=== PATIENT | male | born 1955 | race Caucasian/White ===

== ENCOUNTER 2017-09-03 14:58 | Inpatient (IN) | payer MEDICARE, OTHER ==
[2017-09-03] MEDS: SOD CHLORIDE 0.9% 1,000 ML IV (17:30)
[2017-09-03 17:31] LABS: ADD MAN DIFF? NO
[2017-09-03 17:54] LABS: ALANINE AMINOTRANSFERASE 30 IU/L (13-69); ALBUMIN/GLOBULIN RATIO 1.21; ALKALINE PHOSPHATASE 154 IU/L (42-121); ANION GAP 16 (8-16); ASPARTATE AMINO TRANSFERASE 33 IU/L (15-46); BILIRUBIN,INDIRECT 1.4 mg/dl (0-1.1); BILIRUBIN,TOTAL 1.4 mg/dl (0.2-1.3); BLOOD UREA NITROGEN 18 mg/dl (7-20); CALCIUM 9.2 mg/dl (8.4-10.2); CARBON DIOXIDE 25 mmol/L (21-31); CHLORIDE 100 mmol/L (97-110); GLUCOSE 88 mg/dl (70-220); LIPASE 18 U/L (23-300); SODIUM 137 mmol/L (135-144); TOTAL PROTEIN 7.3 g/dl (6.1-8.1)
[2017-09-03 17:56] LABS: BASOPHILS % 0.2 % (0.0-2.0); EOSINOPHILS % 0.2 % (0.0-7.0); HEMATOCRIT 36.3 % (42.0-52.0); HEMOGLOBIN 11.9 g/dl (14.0-18.0); LYMPHOCYTES # 0.8 10^3/ul (0.8-2.9); LYMPHOCYTES % 15.1 % (15.0-51.0); MEAN CORPUSCULAR HEMOGLOBIN 32.5 pg (29.0-33.0); MEAN CORPUSCULAR HGB CONC 32.8 g/dl (32.0-37.0); MEAN CORPUSCULAR VOLUME 99.2 fl (82.0-101.0); MONOCYTE # 0.5 10^3/ul (0.3-0.9); MONOCYTES % 9.2 % (0.0-11.0); NEUTROPHIL # 3.7 10^3/ul (1.6-7.5); NEUTROPHILS % 75.1 % (39.0-77.0); PLATELET COUNT 234 10^3/UL (140-415); RED BLOOD COUNT 3.66 10^6/ul (4.70-6.10); RED CELL DISTRIBUTION WIDTH 13.6 % (11.5-14.5)
[2017-09-03 19:55] LABS: ADD UMIC NO; UR ASCORBIC ACID NEGATIVE (NEGATIVE); UR BILIRUBIN (Dip) NEGATIVE (NEGATIVE); UR BLOOD (Dip) NEGATIVE (NEGATIVE); UR CLARITY CLEAR (CLEAR); UR COLOR YELLOW (YELLOW); UR GLUCOSE (Dip) NEGATIVE (NEGATIVE); UR KETONES (Dip) 1+ mg/dL (NEGATIVE); UR LEUKOCYTE ESTERASE (Dip) NEGATIVE Leu/ul (NEGATIVE); UR NITRITE (Dip) NEGATIVE (NEGATIVE); UR SPECIFIC GRAVITY (Dip) 1.014 (1.003-1.030); UR TOTAL PROTEIN (Dip) NEGATIVE (NEGATIVE); UR UROBILINOGEN (Dip) 1+ mg/dL (NEGATIVE)
[2017-09-03] MEDS ORDERED: ONDANSETRON 4 MG INJ IV (20:30)
[2017-09-03] MEDS ORDERED: ACETAMINOPHEN 325 MG TAB PO (20:30)
[2017-09-03] MEDS ORDERED: ACETAMINOPHEN 650 MG SUPP PR (21:30)
[2017-09-03] MEDS ORDERED: NACL 0.9% 3 ML SYG IV (21:30)
[2017-09-03] MEDS: DEXTROSE 5%-0.45% NACL 1,000 ML IV (21:46)
[2017-09-03] MEDS ORDERED: KETOROLAC 15 MG INJ IV (22:00)
[2017-09-03 22:38] LABS: HAAIG REFLEX REFLEX FILED
[2017-09-03] MEDS: ZOLPIDEM 5 MG TAB PO (23:07)
[2017-09-03 23:35] LABS: HEPATITIS B SURFACE ANTIGEN NEGATIVE (NEGATIVE)
[2017-09-03 23:37] LABS: CANCER ANTIGEN 19-9 40.8 U/ml (0.0-37.0)
[2017-09-03 23:52] LABS: HEPATITIS B CORE ANTIBODY NEGATIVE (NEGATIVE); HEPATITIS C VIRAL ANTIBODY NEGATIVE (NEGATIVE)
[2017-09-03 23:53] LABS: HEPATITIS B SURFACE ANTIBODY NEGATIVE (NEGATIVE)
[2017-09-04] MEDS ORDERED: LORAZEPAM 2 MG INJ IV (01:30)
[2017-09-04] MEDS: LORAZEPAM 2 MG INJ IV (01:31)
[2017-09-04] MEDS: morphine 2 MG INJ IV (02:48)
[2017-09-04 03:03] LABS: CANCER ANTIGEN 125 31.8 U/ml (0.0-35.0)
[2017-09-04 03:03] LABS: CARCINOEMBRYONIC ANTIGEN 2.9 ng/ml (0.0-5.0)
[2017-09-04 05:33] LABS: ADD MAN DIFF? NO
[2017-09-04 05:39] LABS: ABNORMAL IP MESSAGE 1; BASOPHILS % 0.2 % (0.0-2.0); EOSINOPHILS % 0.2 % (0.0-7.0); HEMATOCRIT 33.4 % (42.0-52.0); HEMOGLOBIN 11.2 g/dl (14.0-18.0); LYMPHOCYTES # 0.5 10^3/ul (0.8-2.9); MEAN CORPUSCULAR HEMOGLOBIN 32.3 pg (29.0-33.0); MEAN CORPUSCULAR HGB CONC 33.5 g/dl (32.0-37.0); MEAN CORPUSCULAR VOLUME 96.3 fl (82.0-101.0); MEAN PLATELET VOLUME 10.5 fl (7.4-10.4); MONOCYTE # 0.4 10^3/ul (0.3-0.9); MONOCYTES % 8.7 % (0.0-11.0); NEUTROPHIL # 3.7 10^3/ul (1.6-7.5); NEUTROPHILS % 80.7 % (39.0-77.0); PLATELET COUNT 229 10^3/UL (140-415); POSITIVE DIFF @See below; RED BLOOD COUNT 3.47 10^6/ul (4.70-6.10); RED CELL DISTRIBUTION WIDTH 13.3 % (11.5-14.5)
[2017-09-04 05:39] LABS: WHITE BLOOD COUNT 4.6 10^3/ul (4.8-10.8)
[2017-09-04] MEDS: PANTOPRAZOLE 40 MG INJ IV (05:56)
[2017-09-04] MEDS ORDERED: PANTOPRAZOLE 40 MG INJ IV (06:00)
[2017-09-04 07:13] LABS: ALANINE AMINOTRANSFERASE 26 IU/L (13-69); ALBUMIN 3.3 g/dl (3.3-4.9); ALBUMIN/GLOBULIN RATIO 1.17; ALKALINE PHOSPHATASE 104 IU/L (42-121); ANION GAP 10 (8-16); ASPARTATE AMINO TRANSFERASE 29 IU/L (15-46); BLOOD UREA NITROGEN 13 mg/dl (7-20); CALCIUM 8.9 mg/dl (8.4-10.2); CARBON DIOXIDE 27 mmol/L (21-31); CHLORIDE 105 mmol/L (97-110); CREATININE 0.64 mg/dl (0.61-1.24); GLUCOSE 116 mg/dl (70-220); MAGNESIUM 1.9 mg/dl (1.7-2.5); POTASSIUM 3.7 mmol/L (3.5-5.1); SODIUM 138 mmol/L (135-144); TOTAL PROTEIN 6.1 g/dl (6.1-8.1)
[2017-09-04] MEDS: DEXTROSE 5%-0.45% NACL 1,000 ML IV ×3 (07:58→20:32)
[2017-09-04 08:23] LABS: HEMOGLOBIN A1C 5.6 % (0-5.9)
[2017-09-04] MEDS: ENOXAPARIN 30 MG/0.3 ML SYG SC (09:16)
[2017-09-04 11:06] LABS: THYROID STIMULATING HORMONE 0.771 MIU/L (0.465-4.680)
[2017-09-04] MEDS: ZOLPIDEM 5 MG TAB PO (21:36)
[2017-09-05 05:22] LABS: ADD MAN DIFF? NO
[2017-09-05 05:24] LABS: ABNORMAL IP MESSAGE 1; BASOPHILS % 0.1 % (0.0-2.0); EOSINOPHILS % 0.1 % (0.0-7.0); HEMATOCRIT 34.2 % (42.0-52.0); HEMOGLOBIN 11.9 g/dl (14.0-18.0); LYMPHOCYTES # 0.6 10^3/ul (0.8-2.9); LYMPHOCYTES % 8.4 % (15.0-51.0); MEAN CORPUSCULAR HEMOGLOBIN 32.5 pg (29.0-33.0); MEAN CORPUSCULAR HGB CONC 34.8 g/dl (32.0-37.0); MEAN CORPUSCULAR VOLUME 93.4 fl (82.0-101.0); MEAN PLATELET VOLUME 10.5 fl (7.4-10.4); MONOCYTE # 0.5 10^3/ul (0.3-0.9); MONOCYTES % 6.8 % (0.0-11.0); NEUTROPHIL # 5.8 10^3/ul (1.6-7.5); NEUTROPHILS % 84.2 % (39.0-77.0); PLATELET COUNT 238 10^3/UL (140-415); POSITIVE DIFF @See below; RED BLOOD COUNT 3.66 10^6/ul (4.70-6.10); RED CELL DISTRIBUTION WIDTH 13.2 % (11.5-14.5)
[2017-09-05 05:24] LABS: WHITE BLOOD COUNT 6.9 10^3/ul (4.8-10.8)
[2017-09-05] MEDS: PANTOPRAZOLE 40 MG INJ IV (05:31)
[2017-09-05 05:39] LABS: PHOSPHORUS 2.7 mg/dl (2.5-4.9)
[2017-09-05] MEDS: DEXTROSE 5%-0.45% NACL 1,000 ML IV ×2 (06:04→19:02)
[2017-09-05] MEDS: ENOXAPARIN 30 MG/0.3 ML SYG SC (09:00)
[2017-09-05] MEDS: morphine 2 MG INJ IV ×3 (12:59→20:46)
[2017-09-05] MEDS ORDERED: MEPERIDINE 25 MG INJ (13:04)
[2017-09-05] MEDS: ONDANSETRON 4 MG INJ IV (13:05)
[2017-09-05] MEDS ORDERED: MEPERIDINE 25 MG INJ IV (13:30)
[2017-09-06] MEDS: morphine 2 MG INJ IV ×2 (00:54→05:00)
[2017-09-06] MEDS: DEXTROSE 5%-0.45% NACL 1,000 ML IV ×3 (00:55→17:35)
[2017-09-06] MEDS: PANTOPRAZOLE 40 MG INJ IV ×2 (05:00→17:34)
[2017-09-06] MEDS: ENOXAPARIN 30 MG/0.3 ML SYG SC (09:48)
[2017-09-06] MEDS: SOD CHLORIDE 0.9% 500 ML IV (12:37)
[2017-09-06 15:07] LABS: ADD MAN DIFF? NO
[2017-09-06 15:12] LABS: WHITE BLOOD COUNT 7.2 10^3/ul (4.8-10.8)
[2017-09-06 15:12] LABS: ABNORMAL IP MESSAGE 1; BASOPHILS % 0.1 % (0.0-2.0); EOSINOPHILS % 0.1 % (0.0-7.0); HEMATOCRIT 33.9 % (42.0-52.0); HEMOGLOBIN 11.2 g/dl (14.0-18.0); LYMPHOCYTES # 0.5 10^3/ul (0.8-2.9); LYMPHOCYTES % 7.5 % (15.0-51.0); MEAN CORPUSCULAR HEMOGLOBIN 32.1 pg (29.0-33.0); MEAN CORPUSCULAR VOLUME 97.1 fl (82.0-101.0); MEAN PLATELET VOLUME 10.7 fl (7.4-10.4); MONOCYTE # 0.4 10^3/ul (0.3-0.9); MONOCYTES % 5.2 % (0.0-11.0); NEUTROPHIL # 6.3 10^3/ul (1.6-7.5); NEUTROPHILS % 86.7 % (39.0-77.0); PLATELET COUNT 184 10^3/UL (140-415); POSITIVE DIFF @See below; RED BLOOD COUNT 3.49 10^6/ul (4.70-6.10); RED CELL DISTRIBUTION WIDTH 13.8 % (11.5-14.5)
[2017-09-06] MEDS: ALBUMIN HUMAN 25% 100 ML IV (15:18)
[2017-09-06 15:32] LABS: ALANINE AMINOTRANSFERASE 34 IU/L (13-69); ALBUMIN 2.8 g/dl (3.3-4.9); ALBUMIN/GLOBULIN RATIO 1.03; ALKALINE PHOSPHATASE 93 IU/L (42-121); ANION GAP 10 (8-16); ASPARTATE AMINO TRANSFERASE 28 IU/L (15-46); BILIRUBIN,INDIRECT 1.1 mg/dl (0-1.1); BILIRUBIN,TOTAL 1.1 mg/dl (0.2-1.3); BLOOD UREA NITROGEN 4 mg/dl (7-20); CALCIUM 8.3 mg/dl (8.4-10.2); CARBON DIOXIDE 25 mmol/L (21-31); CHLORIDE 106 mmol/L (97-110); CREATINE KINASE 139 IU/L (23-200); CREATININE 0.56 mg/dl (0.61-1.24); GLUCOSE 104 mg/dl (70-220); MAGNESIUM 1.5 mg/dl (1.7-2.5); POTASSIUM 3.5 mmol/L (3.5-5.1); SODIUM 137 mmol/L (135-144); TOTAL PROTEIN 5.5 g/dl (6.1-8.1)
[2017-09-06 15:40] LABS: CK INDEX 0.4; CK-MB 0.54 ng/ml (0.0-2.4)
[2017-09-06 16:01] LABS: TROPONIN-I < 0.010 ng/ml (0.000-0.120)
[2017-09-06] MEDS ORDERED: ATROPINE 1 MG/10 ML SYRINGE (16:39)
[2017-09-06] MEDS ORDERED: ATROPINE 1 MG/10 ML SYRINGE IV (17:00)
[2017-09-06] MEDS: MAGNESIUM SULFATE 2 GM/50 ML 50 ML IVPB (17:34)
[2017-09-06 21:04] LABS: CREATINE KINASE 138 IU/L (23-200)
[2017-09-06 21:14] LABS: CK-MB 0.44 ng/ml (0.0-2.4); TROPONIN-I < 0.010 ng/ml (0.000-0.120)
[2017-09-06 21:15] LABS: CK INDEX 0.3
[2017-09-07 03:53] LABS: ADD MAN DIFF? NO
[2017-09-07 04:13] LABS: CREATINE KINASE 189 IU/L (23-200)
[2017-09-07 04:15] LABS: ABNORMAL IP MESSAGE 1; BASOPHILS % 0.2 % (0.0-2.0); EOSINOPHILS % 0.2 % (0.0-7.0); HEMATOCRIT 32.9 % (42.0-52.0); HEMOGLOBIN 11.4 g/dl (14.0-18.0); LYMPHOCYTES # 0.5 10^3/ul (0.8-2.9); LYMPHOCYTES % 8.5 % (15.0-51.0); MEAN CORPUSCULAR HEMOGLOBIN 33.9 pg (29.0-33.0); MEAN CORPUSCULAR HGB CONC 34.7 g/dl (32.0-37.0); MEAN CORPUSCULAR VOLUME 97.9 fl (82.0-101.0); MEAN PLATELET VOLUME 10.7 fl (7.4-10.4); MONOCYTE # 0.3 10^3/ul (0.3-0.9); MONOCYTES % 5.5 % (0.0-11.0); NEUTROPHIL # 5.1 10^3/ul (1.6-7.5); NEUTROPHILS % 85.3 % (39.0-77.0); PLATELET COUNT 201 10^3/UL (140-415); POSITIVE DIFF @See below; RED BLOOD COUNT 3.36 10^6/ul (4.70-6.10); RED CELL DISTRIBUTION WIDTH 13.6 % (11.5-14.5)
[2017-09-07 04:18] LABS: ANION GAP 9 (8-16); BLOOD UREA NITROGEN 3 mg/dl (7-20); CALCIUM 8.5 mg/dl (8.4-10.2); CARBON DIOXIDE 24 mmol/L (21-31); CHLORIDE 107 mmol/L (97-110); CREATININE 0.52 mg/dl (0.61-1.24); GLUCOSE 98 mg/dl (70-220); MAGNESIUM 2.1 mg/dl (1.7-2.5); POTASSIUM 3.5 mmol/L (3.5-5.1); SODIUM 136 mmol/L (135-144)
[2017-09-07 04:26] LABS: CK INDEX 0.4; CK-MB 0.79 ng/ml (0.0-2.4); TROPONIN-I < 0.010 ng/ml (0.000-0.120)
[2017-09-07] MEDS: PANTOPRAZOLE 40 MG INJ IV ×2 (06:41→17:17)
[2017-09-07] MEDS: DEXTROSE 5%-0.45% NACL 1,000 ML IV ×3 (06:42→22:45)
[2017-09-07] MEDS ORDERED: GLYCOPYRROLATE 0.4 MG INJ (08:10)
[2017-09-07] MEDS ORDERED: NEOSTIGMINE 3 MG/3 ML SYRINGE (08:10)
[2017-09-07] MEDS ORDERED: ROCURONIUM 50 MG INJ (08:10)
[2017-09-07] MEDS ORDERED: CEFAZOLIN 1 GM INJ (08:10)
[2017-09-07] MEDS ORDERED: PROPOFOL 20 ML (08:10)
[2017-09-07] MEDS ORDERED: MIDAZOLAM 1 MG/ML 2 ML INJ (08:12)
[2017-09-07] MEDS ORDERED: FENTAnyl 50 MCG/ML VIAL (08:12)
[2017-09-07] MEDS ORDERED: DEXAMETHASONE 4 MG/ML 1 ML INJ (08:13)
[2017-09-07] MEDS ORDERED: ONDANSETRON 4 MG INJ (08:13)
[2017-09-07] MEDS: ENOXAPARIN 30 MG/0.3 ML SYG SC (09:00)
[2017-09-07] MEDS ORDERED: SUGAMMADEX SODIUM 200 MG/2 ML VIAL IV (09:01)
[2017-09-07] MEDS ORDERED: HYDROmorphONE 1 MG/5 ML IV SYRINGE IV ×5 (09:24→10:30)
[2017-09-07] MEDS: HYDROmorphONE 1 MG/5 ML IV SYRINGE IV (09:57)
[2017-09-07] MEDS ORDERED: FENTAnyl 50 MCG/ML VIAL IV ×5 (10:00→10:30)
[2017-09-07] MEDS: PROPOFOL 20 ML ×2 (10:25)
[2017-09-07] MEDS ORDERED: EPHEDrine SULFATE 50 MG/5 ML SYG IV (10:30)
[2017-09-07] MEDS ORDERED: TRIMETHOBENZAMIDE 100 MG/ML VIAL IM (10:30)
[2017-09-07] MEDS ORDERED: MIDAZOLAM 1 MG/ML 2 ML INJ IV (10:30)
[2017-09-07] MEDS ORDERED: hydrALAzine 20 MG INJ IV (10:30)
[2017-09-07] MEDS ORDERED: ONDANSETRON 4 MG INJ IV (10:30)
[2017-09-07] MEDS ORDERED: LABETALOL HCL 20MG INJ IV (10:30)
[2017-09-07] MEDS ORDERED: MEPERIDINE 25 MG INJ IV (10:30)
[2017-09-07] MEDS ORDERED: ALBUTEROL 0.083% (NEB) 2.5 MG/3 ML AMP HHN (10:30)
[2017-09-07] MEDS ORDERED: DIPHENHYDRAMINE 50 MG INJ IV (10:30)
[2017-09-07] MEDS ORDERED: OXYCODONE/ACETAMINOPHEN (5/325) TAB PO ×2 (10:30)
[2017-09-07] MEDS ORDERED: IPRATROPIUM (NEB) 0.5 MG/2.5 ML AMP HHN (10:30)
[2017-09-07] MEDS: ACETAMINOPHEN 1000MG/100ML IV 100 ML IVPB (12:01)
[2017-09-07] MEDS: ONDANSETRON 4 MG INJ IV ×2 (15:09→20:17)
[2017-09-07 15:46] LABS: HEPATITIS B DELTA ANTIBODY NEGATIVE
[2017-09-07] MEDS: morphine 2 MG INJ IV (17:17)
[2017-09-07] MEDS: ZOLPIDEM 5 MG TAB PO (20:17)
[2017-09-08] MEDS: morphine 2 MG INJ IV (01:47)
[2017-09-08] MEDS: PANTOPRAZOLE 40 MG INJ IV ×2 (06:30→17:44)
[2017-09-08] MEDS: DEXTROSE 5%-0.45% NACL 1,000 ML IV ×3 (06:30→16:36)
[2017-09-08] MEDS: ENOXAPARIN 30 MG/0.3 ML SYG SC (08:17)
[2017-09-08] MEDS: ONDANSETRON 4 MG INJ IV (08:34)
[2017-09-08] MEDS: METOCLOPRAMIDE 10 MG INJ IV ×3 (12:21→23:43)
[2017-09-08] MEDS: ZOLPIDEM 5 MG TAB PO (20:13)
[2017-09-09] MEDS: DEXTROSE 5%-0.45% NACL 1,000 ML IV ×3 (01:39→22:21)
[2017-09-09] MEDS: PANTOPRAZOLE 40 MG INJ IV ×2 (06:02→17:00)
[2017-09-09] MEDS: METOCLOPRAMIDE 10 MG INJ IV ×4 (06:02→23:52)
[2017-09-09] MEDS: ENOXAPARIN 30 MG/0.3 ML SYG SC (08:35)
[2017-09-09] MEDS: AL HYDROX/MG HYDROX/SIMETH 30 ML CUP PO ×2 (10:17→16:56)
[2017-09-09] MEDS: ZOLPIDEM 5 MG TAB PO (20:10)
[2017-09-10] MEDS: PANTOPRAZOLE 40 MG INJ IV (05:50)
[2017-09-10] MEDS: METOCLOPRAMIDE 10 MG INJ IV (05:51)
[2017-09-10] MEDS: DEXTROSE 5%-0.45% NACL 1,000 ML IV ×2 (05:51→14:25)
[2017-09-10] MEDS: ENOXAPARIN 30 MG/0.3 ML SYG SC (08:18)
[2017-09-10 09:08] LABS: ADD MAN DIFF? NO
[2017-09-10 09:20] LABS: ABNORMAL IP MESSAGE 1; BASOPHILS % 0.1 % (0.0-2.0); HEMATOCRIT 30.3 % (42.0-52.0); LYMPHOCYTES # 0.6 10^3/ul (0.8-2.9); LYMPHOCYTES % 6.1 % (15.0-51.0); MEAN CORPUSCULAR HEMOGLOBIN 33.5 pg (29.0-33.0); MEAN CORPUSCULAR HGB CONC 36.3 g/dl (32.0-37.0); MEAN CORPUSCULAR VOLUME 92.4 fl (82.0-101.0); MEAN PLATELET VOLUME 10.9 fl (7.4-10.4); MONOCYTE # 0.9 10^3/ul (0.3-0.9); MONOCYTES % 10.2 % (0.0-11.0); NEUTROPHIL # 7.5 10^3/ul (1.6-7.5); NEUTROPHILS % 83.3 % (39.0-77.0); PLATELET COUNT 236 10^3/UL (140-415); POSITIVE DIFF @See below; RED BLOOD COUNT 3.28 10^6/ul (4.70-6.10); RED CELL DISTRIBUTION WIDTH 12.7 % (11.5-14.5)
[2017-09-10 09:36] LABS: ALANINE AMINOTRANSFERASE 28 IU/L (13-69); ALBUMIN 2.5 g/dl (3.3-4.9); ALBUMIN/GLOBULIN RATIO 1.04; ALKALINE PHOSPHATASE 72 IU/L (42-121); ANION GAP 8 (8-16); ASPARTATE AMINO TRANSFERASE 32 IU/L (15-46); BILIRUBIN,INDIRECT 1.2 mg/dl (0-1.1); BILIRUBIN,TOTAL 1.2 mg/dl (0.2-1.3); BLOOD UREA NITROGEN 4 mg/dl (7-20); CALCIUM 7.8 mg/dl (8.4-10.2); CARBON DIOXIDE 30 mmol/L (21-31); CHLORIDE 94 mmol/L (97-110); CREATININE 0.45 mg/dl (0.61-1.24); GLUCOSE 106 mg/dl (70-220); SODIUM 129 mmol/L (135-144); TOTAL PROTEIN 4.9 g/dl (6.1-8.1)
[2017-09-10 09:40] LABS: MAGNESIUM 1.5 mg/dl (1.7-2.5)
[2017-09-10 09:40] LABS: PHOSPHORUS 2.7 mg/dl (2.5-4.9)
[2017-09-10 09:54] LABS: POTASSIUM 2.6 mmol/L (3.5-5.1)
[2017-09-10] MEDS: POTASSIUM CHLORIDE 100 ML IVPB ×3 (10:39→16:41)
[2017-09-10] MEDS: ZOLPIDEM 5 MG TAB PO (20:12)
[2017-09-10] MEDS: MAGNESIUM SULFATE 2 GM/50 ML 50 ML IVPB (20:15)
[2017-09-10 23:45] LABS: ANION GAP 6 (8-16); BLOOD UREA NITROGEN 4 mg/dl (7-20); CALCIUM 7.6 mg/dl (8.4-10.2); CARBON DIOXIDE 29 mmol/L (21-31); CHLORIDE 97 mmol/L (97-110); CREATININE 0.44 mg/dl (0.61-1.24); GLUCOSE 94 mg/dl (70-220); POTASSIUM 3.3 mmol/L (3.5-5.1); SODIUM 129 mmol/L (135-144)
[2017-09-11] MEDS: POTASSIUM CHLORIDE 100 ML IVPB ×3 (01:16→06:02)
[2017-09-11] MEDS ORDERED: MAGNESIUM SULFATE 4 GM/100 ML 100 ML IVPB (01:30)
[2017-09-11] MEDS ORDERED: MAGNESIUM SULFATE (GM) 50% 2 ML INJ IVPB (04:00)
[2017-09-11] MEDS: PANTOPRAZOLE 40 MG INJ IV (08:37)
[2017-09-11] MEDS: MAGNESIUM SULFATE 1 GM/D5W 100 ML IVPB (08:59)
[2017-09-11] MEDS: ENOXAPARIN 40 MG/0.4 ML SYG SC (09:58)
[2017-09-11 10:09] LABS: ADD MAN DIFF? NO
[2017-09-11 10:14] LABS: ABNORMAL IP MESSAGE 1; BASOPHILS % 0.3 % (0.0-2.0); EOSINOPHILS % 0.1 % (0.0-7.0); HEMATOCRIT 33.2 % (42.0-52.0); HEMOGLOBIN 11.7 g/dl (14.0-18.0); LYMPHOCYTES # 0.5 10^3/ul (0.8-2.9); LYMPHOCYTES % 6.3 % (15.0-51.0); MEAN CORPUSCULAR HEMOGLOBIN 33.2 pg (29.0-33.0); MEAN CORPUSCULAR HGB CONC 35.2 g/dl (32.0-37.0); MEAN CORPUSCULAR VOLUME 94.3 fl (82.0-101.0); MEAN PLATELET VOLUME 10.2 fl (7.4-10.4); MONOCYTE # 0.7 10^3/ul (0.3-0.9); MONOCYTES % 8.8 % (0.0-11.0); NEUTROPHIL # 6.2 10^3/ul (1.6-7.5); NEUTROPHILS % 83.6 % (39.0-77.0); PLATELET COUNT 254 10^3/UL (140-415); POSITIVE DIFF @See below; RED BLOOD COUNT 3.52 10^6/ul (4.70-6.10); RED CELL DISTRIBUTION WIDTH 13.1 % (11.5-14.5)
[2017-09-11 10:14] LABS: WHITE BLOOD COUNT 7.5 10^3/ul (4.8-10.8)
[2017-09-11 10:32] LABS: INR 1.28; PROTIME 16.2 Sec (11.9-14.9); PT RATIO 1.3
[2017-09-11 10:57] LABS: ALANINE AMINOTRANSFERASE 30 IU/L (13-69); ALBUMIN 2.6 g/dl (3.3-4.9); ALBUMIN/GLOBULIN RATIO 1.13; ALKALINE PHOSPHATASE 76 IU/L (42-121); ANION GAP 10 (8-16); ASPARTATE AMINO TRANSFERASE 35 IU/L (15-46); BILIRUBIN,INDIRECT 1.4 mg/dl (0-1.1); BILIRUBIN,TOTAL 1.4 mg/dl (0.2-1.3); BLOOD UREA NITROGEN 6 mg/dl (7-20); CALCIUM 8.1 mg/dl (8.4-10.2); CARBON DIOXIDE 24 mmol/L (21-31); CHLORIDE 99 mmol/L (97-110); CREATININE 0.42 mg/dl (0.61-1.24); GLUCOSE 121 mg/dl (70-220); MAGNESIUM 2.1 mg/dl (1.7-2.5); PHOSPHORUS 2.5 mg/dl (2.5-4.9); POTASSIUM 4.2 mmol/L (3.5-5.1); SODIUM 129 mmol/L (135-144); TOTAL PROTEIN 4.9 g/dl (6.1-8.1)
[2017-09-11 11:27] LABS: THYROID STIMULATING HORMONE 0.467 MIU/L (0.465-4.680)
[2017-09-12] MEDS ORDERED: PANTOPRAZOLE (EC) 40 MG TAB PO (06:00)
== END 2017-09-11 14:57 | disposition home or self-care (01) | DRG 374 ==
LOC: E/R 14:58 → TEL 09-06 14:48 → MS1 20:03
PROC: 0DB48ZX Excision of Esophagogastric Junction, Via Natural or Artificial Opening Endoscopic, Diagnostic (ICD-10-PCS; principal; 2017-09-05 11:50)
PROC: 0D798DZ Dilation of Duodenum with Intraluminal Device, Via Natural or Artificial Opening Endoscopic (ICD-10-PCS; 2017-09-05 11:50)
PROC: 0D748DZ Dilation of Esophagogastric Junction with Intraluminal Device, Via Natural or Artificial Opening Endoscopic (ICD-10-PCS; 2017-09-05 11:50)
DX: C16.0 Malignant neoplasm of cardia (principal); E43 Unspecified severe protein-calorie malnutrition; Z68.1 Body mass index [BMI] 19.9 or less, adult; K31.1 Adult hypertrophic pyloric stenosis; E80.6 Other disorders of bilirubin metabolism; Z92.21 Personal history of antineoplastic chemotherapy; Z92.3 Personal history of irradiation; Z90.3 Acquired absence of stomach [part of]; K21.9 Gastro-esophageal reflux disease without esophagitis; R00.1 Bradycardia, unspecified; Z51.5 Encounter for palliative care; F17.200 Nicotine dependence, unspecified, uncomplicated; K29.70 Gastritis, unspecified, without bleeding; D64.9 Anemia, unspecified; I95.9 Hypotension, unspecified
CPT/HCPCS: 36415; 71045; 74018; 74176; 76705; 80048; 80053; 81003; 82378; 82550; 82553; 83036; 83690; 83735; 84100; 84443; 84484; 85025; 85610; 86301; 86304; 86692; 86704; 86706; 86708; 86709; 86803; 87340; 88305; 88313; 92610; 93005; 93306; 99285-25

== ENCOUNTER 2017-10-06 11:37 | Inpatient (IN) | payer MEDICARE, OTHER ==
[2017-10-06 12:03] LABS: ADD MAN DIFF? NO
[2017-10-06] MEDS: SODIUM CHLORIDE 0.9% 1L BAG IV* ×2 (12:15→13:43)
[2017-10-06 12:25] LABS: INR 1.22; PROTIME 15.6 Sec (11.9-14.9); PT RATIO 1.2
[2017-10-06 12:26] LABS: ALANINE AMINOTRANSFERASE 26 IU/L (13-69); ALBUMIN 2.8 g/dl (3.3-4.9); ALKALINE PHOSPHATASE 166 IU/L (42-121); ANION GAP 17 (8-16); ASPARTATE AMINO TRANSFERASE 42 IU/L (15-46); BILIRUBIN,INDIRECT 0.9 mg/dl (0-1.1); BILIRUBIN,TOTAL 0.9 mg/dl (0.2-1.3); BLOOD UREA NITROGEN 13 mg/dl (7-20); CALCIUM 8.2 mg/dl (8.4-10.2); CARBON DIOXIDE 24 mmol/L (21-31); CHLORIDE 91 mmol/L (97-110); CREATININE 0.58 mg/dl (0.61-1.24); GLUCOSE 112 mg/dl (70-220); PARTIAL THROMBOPLASTIN TIME 34.7 Sec (25.0-35.0); SODIUM 128 mmol/L (135-144); TOTAL PROTEIN 5.6 g/dl (6.1-8.1)
[2017-10-06 12:27] LABS: ABNORMAL IP MESSAGE 1; HEMATOCRIT 23.8 % (42.0-52.0); HEMOGLOBIN 8.5 g/dl (14.0-18.0); MEAN CORPUSCULAR HEMOGLOBIN 32.8 pg (29.0-33.0); MEAN CORPUSCULAR HGB CONC 35.7 g/dl (32.0-37.0); MEAN CORPUSCULAR VOLUME 91.9 fl (82.0-101.0); NUCLEATED RED BLOOD CELLS% 2.4 /100WBC (0.0-0.0); PLATELET COUNT 166 10^3/UL (140-415); POSITIVE DIFF @See below; RED BLOOD COUNT 2.59 10^6/ul (4.70-6.10); RED CELL DISTRIBUTION WIDTH 12.8 % (11.5-14.5)
[2017-10-06 12:27] LABS: WHITE BLOOD COUNT 0.8 10^3/ul (4.8-10.8)
[2017-10-06 12:31] LABS: LACTIC ACID 3.7 mmol/L (0.5-2.0)
[2017-10-06 12:37] LABS: TROPONIN-I < 0.010 ng/ml (0.000-0.120)
[2017-10-06 13:37] LABS: ANISOCYTOSIS 2+ (0-0); BAND NEUTROPHILS % (M) 6 % (0-4); EOSINOPHILS % (M) 1 % (0-7); ERYTHROBLAST% (NRBC) (M) 4 % (0-0); GIANT THROMBO% (M) 3 % (0-0); LYMPHOCYTES #M 0.4 10^3/ul (0.8-2.9); LYMPHOCYTES % (M) 55 % (15-51); MONOCYTES % (M) 11 % (0-11); PLATELET ESTIMATE NORMAL; POIKILOCYTOSIS 1+ (0-0); RBC MORPHOLOGY COMMENT @See below; REACTIVE LYMPHOCYTES% (M) 12 % (0-0); SEG NEUT #M 0.1 10^3/ul (1.6-7.5); SEGMENTED NEUTROPHILS (M) % 16 % (39-77); SMUDGE%M 78 % (0-0)
[2017-10-06] MEDS: VANCOMYCIN 1 GM (PMX) 250 ML IVPB (13:41)
[2017-10-06] MEDS: CEFEPIME 1GM/50 ML (PMX) 50 ML IVPB (13:42)
[2017-10-06] MEDS ORDERED: ACETAMINOPHEN 325 MG TAB PO (14:00)
[2017-10-06 14:10] LABS: WBC MORPHOLOGY COMMENT @See below
[2017-10-06] MEDS: HYDROmorphONE 0.5 MG/0.5 ML SYG IV (15:00)
[2017-10-06] MEDS: ONDANSETRON 4 MG INJ IV (15:07)
[2017-10-06 15:52] LABS: LACTIC ACID 1.4 mmol/L (0.5-2.0)
[2017-10-06] MEDS ORDERED: ALBUTEROL/IPRATROPIUM (NEB) 3 ML AMP HHN (17:00)
[2017-10-06] MEDS ORDERED: NACL 0.9% 3 ML SYG IV (17:00)
[2017-10-06] MEDS ORDERED: hydrALAzine 20 MG INJ IV (17:00)
[2017-10-06] MEDS ORDERED: NA PHOSPHATE/BIPHOS 133 ML ENEMA PR (17:00)
[2017-10-06] MEDS ORDERED: ACETAMINOPHEN XX (17:00)
[2017-10-06] MEDS ORDERED: VANCOMYCIN IV PER PHARMACY XX (17:00)
[2017-10-06] MEDS ORDERED: NITROGLYCERIN (SL) 0.4 MG TAB SL (17:00)
[2017-10-06] MEDS ORDERED: LORAZEPAM 2 MG INJ IV (17:00)
[2017-10-06] MEDS ORDERED: DOCUSATE SODIUM 100 MG CAP PO (17:00)
[2017-10-06] MEDS ORDERED: MAGNESIUM HYDROXIDE 30ML CUP PO (17:00)
[2017-10-06] MEDS ORDERED: HYDROCODONE XX (17:00)
[2017-10-06 17:59] LABS: PROTIME 15.4 Sec (11.9-14.9); PT RATIO 1.2
[2017-10-06 18:00] LABS: PARTIAL THROMBOPLASTIN TIME 39.9 Sec (25.0-35.0)
[2017-10-06 18:08] LABS: LACTIC ACID 2.1 mmol/L (0.5-2.0)
[2017-10-06] MEDS: DEXTROSE 5%-0.45% NACL 1,000 ML IV (18:12)
[2017-10-06] MEDS: PIPER-TAZO 3.375 GM IV (PMX) 100 ML IVPB ×2 (18:12→23:53)
[2017-10-06] MEDS: morphine 2 MG INJ IV ×2 (18:12→21:49)
[2017-10-06] MEDS: IOHEXOL 14.3 MG(I)/ML (ADULT) BTL PO (18:30)
[2017-10-06] MEDS: DEXTROSE 5%-0.9% NACL 1,000 ML IV (18:43)
[2017-10-06] MEDS: FILGRASTIM 300 MCG INJ SC (18:44)
[2017-10-06] MEDS: VANCOMYCIN 1 GM 250 ML IVPB (19:21)
[2017-10-06 20:26] LABS: LACTIC ACID 1.7 mmol/L (0.5-2.0)
[2017-10-06] MEDS: FAMOTIDINE 20 MG INJ IV (21:38)
[2017-10-06] MEDS: HEPARIN 5,000 UNIT/0.5 ML VIAL SC (21:45)
[2017-10-06] MEDS: ZOLPIDEM 5 MG TAB PO (21:49)
[2017-10-06 23:10] LABS: LACTIC ACID 1.5 mmol/L (0.5-2.0)
[2017-10-06] MEDS: ACETAMINOPHEN 325 MG TAB PO (23:59)
[2017-10-07 01:47] LABS: LACTIC ACID 1.3 mmol/L (0.5-2.0)
[2017-10-07] MEDS: PIPER-TAZO 3.375 GM IV (PMX) 100 ML IVPB ×2 (05:28→12:28)
[2017-10-07 07:18] LABS: WHITE BLOOD COUNT 0.5 10^3/ul (4.8-10.8)
[2017-10-07 07:19] LABS: ABNORMAL IP MESSAGE 1; HEMATOCRIT 16.6 % (42.0-52.0); MEAN CORPUSCULAR HEMOGLOBIN 32.4 pg (29.0-33.0); MEAN CORPUSCULAR HGB CONC 34.9 g/dl (32.0-37.0); MEAN CORPUSCULAR VOLUME 92.7 fl (82.0-101.0); MEAN PLATELET VOLUME 9.7 fl (7.4-10.4); PLATELET COUNT 127 10^3/UL (140-415); POSITIVE DIFF @See below; RED BLOOD COUNT 1.79 10^6/ul (4.70-6.10); RED CELL DISTRIBUTION WIDTH 12.9 % (11.5-14.5)
[2017-10-07 07:34] LABS: LACTIC ACID 1.6 mmol/L (0.5-2.0)
[2017-10-07 07:40] LABS: ANION GAP 11 (8-16); BLOOD UREA NITROGEN 12 mg/dl (7-20); CALCIUM 7.7 mg/dl (8.4-10.2); CARBON DIOXIDE 25 mmol/L (21-31); CHLORIDE 98 mmol/L (97-110); CHOLESTEROL 65 mg/dl (100-200); CREATININE 0.48 mg/dl (0.61-1.24); GLUCOSE 111 mg/dl (70-220); HDL CHOLESTEROL 31 mg/dl (30-78); LDL CHOLESTEROL,CALCULATED 19 mg/dl; MAGNESIUM 1.6 mg/dl (1.7-2.5); PHOSPHORUS 2.4 mg/dl (2.5-4.9); POTASSIUM 3.8 mmol/L (3.5-5.1); SODIUM 130 mmol/L (135-144); TRIGLYCERIDES 74 mg/dl (0-149)
[2017-10-07 07:43] LABS: ADD MAN DIFF? YES; HEMOGLOBIN 5.8 g/dl (14.0-18.0)
[2017-10-07] MEDS: DEXTROSE 5%-0.9% NACL 1,000 ML IV ×2 (07:50→10:46)
[2017-10-07 08:08] LABS: THYROID STIMULATING HORMONE 0.305 MIU/L (0.465-4.680)
[2017-10-07 08:39] LABS: HEMATOCRIT 16.2 % (42.0-52.0)
[2017-10-07 08:48] LABS: HEMOGLOBIN 5.7 g/dl (14.0-18.0)
[2017-10-07 09:08] LABS: LACTIC ACID 1.4 mmol/L (0.5-2.0)
[2017-10-07 10:22] LABS: ANISOCYTOSIS 2+ (0-0); BAND NEUTROPHILS % (M) 1 % (0-4); BURR CELLS 1+ (0-0); EOSINOPHILS % (M) 3 % (0-7); GIANT THROMBO% (M) 12 % (0-0); LYMPHOCYTES #M 0.3 10^3/ul (0.8-2.9); LYMPHOCYTES % (M) 62 % (15-51); MONOCYTES % (M) 15 % (0-11); PLATELET ESTIMATE DECREASED; POIKILOCYTOSIS 1+ (0-0); POLYCHROMASIA 2+ (0-0); RBC MORPHOLOGY COMMENT @See below; REACTIVE LYMPHOCYTES% (M) 1 % (0-0); SEG NEUT #M 0.1 10^3/ul (1.6-7.5); SEGMENTED NEUTROPHILS (M) % 17 % (39-77); SMUDGE%M 66 % (0-0); WBC MORPHOLOGY COMMENT @See below
[2017-10-07] MEDS: ACETAMINOPHEN 650 MG SUPP PR (10:46)
[2017-10-07] MEDS: HEPARIN 5,000 UNIT/0.5 ML VIAL SC (11:07)
[2017-10-07] MEDS ORDERED: IOHEXOL 14.3 MG(I)/ML (ADULT) BTL PO (13:00)
[2017-10-07] MEDS: SOD CHLORIDE 0.9% 250 ML IV* (13:00)
[2017-10-07] MEDS: CIPROFLOXACIN 400MG/D5W 200 ML IVPB ×2 (15:29→21:27)
[2017-10-07] MEDS: MAGNESIUM SULFATE 2 GM/50 ML 50 ML IVPB (15:29)
[2017-10-07] MEDS: metroNIDAZOLE 500 MG/NS (PMX) 100 ML IVPB ×2 (17:37→21:38)
[2017-10-07] MEDS: POTASSIUM PHOSPHATE 20 MEQ in SOD CHLORIDE 0.9% 250 ML IVPB (17:38)
[2017-10-07] MEDS: FILGRASTIM 300 MCG INJ SC (17:39)
[2017-10-07 18:05] LABS: LACTIC ACID 4.3 mmol/L (0.5-2.0)
[2017-10-07 20:08] LABS: ADD UMIC YES; UR AMORPHOUS CRYSTAL FEW /HPF (NONE SEEN); UR ASCORBIC ACID NEGATIVE (NEGATIVE); UR BILIRUBIN (Dip) NEGATIVE (NEGATIVE); UR BLOOD (Dip) NEGATIVE (NEGATIVE); UR BUDDING YEAST MODERATE /HPF (NONE SEEN); UR CLARITY CLOUDY (CLEAR); UR COLOR YELLOW (YELLOW); UR GLUCOSE (Dip) NEGATIVE (NEGATIVE); UR KETONES (Dip) NEGATIVE (NEGATIVE); UR LEUKOCYTE ESTERASE (Dip) NEGATIVE Leu/ul (NEGATIVE); UR NITRITE (Dip) NEGATIVE (NEGATIVE); UR RBC 2 /HPF (0-5); UR SPECIFIC GRAVITY (Dip) 1.035 (1.003-1.030); UR TOTAL PROTEIN (Dip) 1+ mg/dl (NEGATIVE); UR UROBILINOGEN (Dip) NEGATIVE (NEGATIVE); UR WBC 8 /HPF (0-5)
[2017-10-07] MEDS ORDERED: VANCOMYCIN 500MG/NS (PMX) 100 ML IVPB (21:00)
[2017-10-07] MEDS: FAMOTIDINE 20 MG INJ IV (21:26)
[2017-10-07] MEDS: ZOLPIDEM 5 MG TAB PO (21:38)
[2017-10-07] MEDS: morphine 2 MG INJ IV (21:39)
[2017-10-07] MEDS: IODIXANOL LOCM 100 ML BTL (23:19)
[2017-10-07] MEDS: SOD CHLORIDE 0.9% 100 ML (23:19)
[2017-10-08 02:55] LABS: IMMEDIATE SPIN CROSSMATCH 1 2
[2017-10-08 07:24] LABS: ABNORMAL IP MESSAGE 1; HEMATOCRIT 20.6 % (42.0-52.0); HEMOGLOBIN 7.2 g/dl (14.0-18.0); MEAN CORPUSCULAR HEMOGLOBIN 31.3 pg (29.0-33.0); MEAN CORPUSCULAR VOLUME 89.6 fl (82.0-101.0); MEAN PLATELET VOLUME 10.1 fl (7.4-10.4); PLATELET COUNT 167 10^3/UL (140-415); POSITIVE DIFF @See below; RED CELL DISTRIBUTION WIDTH 13.4 % (11.5-14.5)
[2017-10-08 07:25] LABS: ADD MAN DIFF? YES
[2017-10-08 07:43] LABS: ANION GAP 13 (8-16); BLOOD UREA NITROGEN 10 mg/dl (7-20); CALCIUM 7.7 mg/dl (8.4-10.2); CARBON DIOXIDE 21 mmol/L (21-31); CHLORIDE 98 mmol/L (97-110); CREATININE 0.41 mg/dl (0.61-1.24); GLUCOSE 93 mg/dl (70-220); POTASSIUM 3.1 mmol/L (3.5-5.1); SODIUM 129 mmol/L (135-144)
[2017-10-08] MEDS: metroNIDAZOLE 500 MG/NS (PMX) 100 ML IVPB (08:29)
[2017-10-08 09:25] LABS: BAND NEUTROPHILS #M 0.1 10^3/ul (0.0-0.6); BAND NEUTROPHILS % (M) 12 % (0-4); BURR CELLS 3+ (0-0); EOSINOPHILS % (M) 3 % (0-7); GIANT THROMBO% (M) 3 % (0-0); LYMPHOCYTES #M 0.4 10^3/ul (0.8-2.9); LYMPHOCYTES % (M) 45 % (15-51); MONOCYTE #M 0.2 10^3/ul (0.3-0.9); MONOCYTES % (M) 20 % (0-11); MYELOCYTES % (M) 2 % (0-0); PLATELET ESTIMATE NORMAL; POIKILOCYTOSIS 3+ (0-0); POLYCHROMASIA 1+ (0-0); PROMYELOCYTES % (M) 1 % (0-0); REACTIVE LYMPHOCYTES% (M) 3 % (0-0); SEG NEUT #M 0.1 10^3/ul (1.6-7.5); SEGMENTED NEUTROPHILS (M) % 14 % (39-77); SMUDGE%M 20 % (0-0)
[2017-10-08] MEDS: CIPROFLOXACIN 400MG/D5W 200 ML IVPB (09:41)
[2017-10-08] MEDS: CEFEPIME 2GM/50 ML (PMX) 50 ML IVPB ×2 (11:46→21:23)
[2017-10-08] MEDS: FILGRASTIM 300 MCG INJ SC (18:42)
[2017-10-08] MEDS: morphine 2 MG INJ IV ×2 (18:46→23:21)
[2017-10-08] MEDS: ZOLPIDEM 5 MG TAB PO (23:20)
[2017-10-09] MEDS: POTASSIUM CHLORIDE 50 ML IVPB ×2 (00:32→05:16)
[2017-10-09] MEDS: morphine 2 MG INJ IV ×3 (05:15→15:53)
[2017-10-09] MEDS: metroNIDAZOLE 500 MG/NS (PMX) 100 ML IVPB (05:16)
[2017-10-09] MEDS: HYDROCODONE/APAP (5/325) TAB PO (05:16)
[2017-10-09 07:32] LABS: ABNORMAL IP MESSAGE 1; HEMATOCRIT 24.8 % (42.0-52.0); MEAN CORPUSCULAR HEMOGLOBIN 30.9 pg (29.0-33.0); MEAN CORPUSCULAR HGB CONC 36.3 g/dl (32.0-37.0); MEAN CORPUSCULAR VOLUME 85.2 fl (82.0-101.0); NUCLEATED RED BLOOD CELLS% 0.4 /100WBC (0.0-0.0); PLATELET COUNT 195 10^3/UL (140-415); POSITIVE DIFF @See below; RED BLOOD COUNT 2.91 10^6/ul (4.70-6.10); RED CELL DISTRIBUTION WIDTH 13.9 % (11.5-14.5)
[2017-10-09 07:32] LABS: WHITE BLOOD COUNT 4.7 10^3/ul (4.8-10.8)
[2017-10-09 07:40] LABS: ADD MAN DIFF? YES
[2017-10-09 07:57] LABS: ANION GAP 11 (8-16); BLOOD UREA NITROGEN 12 mg/dl (7-20); CALCIUM 7.8 mg/dl (8.4-10.2); CARBON DIOXIDE 22 mmol/L (21-31); CHLORIDE 101 mmol/L (97-110); CREATININE 0.41 mg/dl (0.61-1.24); GLUCOSE 82 mg/dl (70-220); POTASSIUM 3.5 mmol/L (3.5-5.1); SODIUM 130 mmol/L (135-144)
[2017-10-09] MEDS: CEFEPIME 2GM/50 ML (PMX) 50 ML IVPB ×2 (08:25→20:48)
[2017-10-09 09:21] LABS: ANISOCYTOSIS 2+ (0-0); BAND NEUTROPHILS #M 1.2 10^3/ul (0.0-0.6); BAND NEUTROPHILS % (M) 27 % (0-4); EOSINOPHILS % (M) 2 % (0-7); ERYTHROBLAST% (NRBC) (M) 1 % (0-0); GIANT THROMBO% (M) 5 % (0-0); LYMPHOCYTES #M 0.4 10^3/ul (0.8-2.9); LYMPHOCYTES % (M) 10 % (15-51); METAMYELOCYTES #M 0.1 10^3/ul (0.0-0.0); METAMYELOCYTES %M 3 % (0-0); MONOCYTE #M 0.8 10^3/ul (0.3-0.9); MONOCYTES % (M) 18 % (0-11); MYELOCYTES #M 0.2 10^3/ul (0.0-0.0); MYELOCYTES % (M) 5 % (0-0); PLATELET ESTIMATE NORMAL; POIKILOCYTOSIS 3+ (0-0); POLYCHROMASIA 3+ (0-0); PROMYELOCYTES % (M) 1 % (0-0); SEG NEUT #M 1.7 10^3/ul (1.6-7.5); SEGMENTED NEUTROPHILS (M) % 36 % (39-77); SMUDGE%M 12 % (0-0)
[2017-10-09] MEDS ORDERED: ACETAMINOPHEN 325 MG TAB PO (13:00)
[2017-10-09] MEDS: PEG/ELECTROLYTES 4L BTL PO (20:47)
[2017-10-09] MEDS: ONDANSETRON 4 MG INJ IV (23:10)
[2017-10-10 01:56] LABS: OCCULT BLOOD STOOL POSITIVE (NEGATIVE)
[2017-10-10 07:27] LABS: ABNORMAL IP MESSAGE 1; HEMATOCRIT 26.7 % (42.0-52.0); HEMOGLOBIN 9.3 g/dl (14.0-18.0); MEAN CORPUSCULAR HEMOGLOBIN 30.3 pg (29.0-33.0); MEAN CORPUSCULAR HGB CONC 34.8 g/dl (32.0-37.0); MEAN PLATELET VOLUME 10.3 fl (7.4-10.4); NUCLEATED RED BLOOD CELLS% 0.2 /100WBC (0.0-0.0); PLATELET COUNT 229 10^3/UL (140-415); POSITIVE DIFF @See below; RED BLOOD COUNT 3.07 10^6/ul (4.70-6.10); RED CELL DISTRIBUTION WIDTH 14.1 % (11.5-14.5)
[2017-10-10 07:27] LABS: WHITE BLOOD COUNT 14.9 10^3/ul (4.8-10.8)
[2017-10-10 07:38] LABS: ADD MAN DIFF? YES
[2017-10-10 08:13] LABS: ANION GAP 10 (8-16); BLOOD UREA NITROGEN 10 mg/dl (7-20); CALCIUM 7.7 mg/dl (8.4-10.2); CARBON DIOXIDE 22 mmol/L (21-31); CHLORIDE 101 mmol/L (97-110); CREATININE 0.39 mg/dl (0.61-1.24); GLUCOSE 68 mg/dl (70-220); POTASSIUM 3.1 mmol/L (3.5-5.1); SODIUM 130 mmol/L (135-144)
[2017-10-10] MEDS: CEFEPIME 2GM/50 ML (PMX) 50 ML IVPB ×2 (08:47→21:29)
[2017-10-10 08:59] LABS: ANISOCYTOSIS 1+ (0-0); BAND NEUTROPHILS #M 2.2 10^3/ul (0.0-0.6); BAND NEUTROPHILS % (M) 15 % (0-4); BURR CELLS 1+ (0-0); EOSINOPHILS % (M) 3 % (0-7); ERYTHROBLAST% (NRBC) (M) 1 % (0-0); GIANT THROMBO% (M) 4 % (0-0); LYMPHOCYTES #M 0.7 10^3/ul (0.8-2.9); LYMPHOCYTES % (M) 5 % (15-51); METAMYELOCYTES #M 0.1 10^3/ul (0.0-0.0); METAMYELOCYTES %M 1 % (0-0); MONOCYTE #M 1.6 10^3/ul (0.3-0.9); MONOCYTES % (M) 11 % (0-11); MYELOCYTES #M 0.2 10^3/ul (0.0-0.0); MYELOCYTES % (M) 2 % (0-0); PLATELET ESTIMATE NORMAL; POLYCHROMASIA 1+ (0-0); REACTIVE LYMPHOCYTES #M 0.4 10^3/ul (0.0-0.0); REACTIVE LYMPHOCYTES% (M) 3 % (0-0); SEG NEUT #M 9.3 10^3/ul (1.6-7.5); SEGMENTED NEUTROPHILS (M) % 60 % (39-77); SMUDGE%M 18 % (0-0)
[2017-10-10] MEDS: PROPOFOL 40 ML (12:33)
[2017-10-10] MEDS: LIDOCAINE 100 MG SYRINGE (12:33)
[2017-10-10] MEDS: FENTAnyl 50 MCG/ML VIAL (12:33)
[2017-10-10] MEDS: POTASSIUM CHLORIDE 100 ML IVPB ×2 (14:24→18:03)
[2017-10-10] MEDS: ZOLPIDEM 5 MG TAB PO (20:47)
[2017-10-11 07:08] LABS: WHITE BLOOD COUNT 20.8 10^3/ul (4.8-10.8)
[2017-10-11 07:08] LABS: ABNORMAL IP MESSAGE 1; HEMATOCRIT 26.4 % (42.0-52.0); HEMOGLOBIN 9.4 g/dl (14.0-18.0); MEAN CORPUSCULAR HEMOGLOBIN 31.6 pg (29.0-33.0); MEAN CORPUSCULAR HGB CONC 35.6 g/dl (32.0-37.0); MEAN CORPUSCULAR VOLUME 88.9 fl (82.0-101.0); MEAN PLATELET VOLUME 10.2 fl (7.4-10.4); NUCLEATED RED BLOOD CELLS% 0.1 /100WBC (0.0-0.0); PLATELET COUNT 294 10^3/UL (140-415); POSITIVE DIFF @See below; RED BLOOD COUNT 2.97 10^6/ul (4.70-6.10); RED CELL DISTRIBUTION WIDTH 14.4 % (11.5-14.5)
[2017-10-11 07:12] LABS: ADD MAN DIFF? YES
[2017-10-11 07:27] LABS: ANION GAP 10 (8-16); BLOOD UREA NITROGEN 9 mg/dl (7-20); CALCIUM 7.7 mg/dl (8.4-10.2); CARBON DIOXIDE 24 mmol/L (21-31); CHLORIDE 101 mmol/L (97-110); CREATININE 0.48 mg/dl (0.61-1.24); GLUCOSE 80 mg/dl (70-220); POTASSIUM 3.1 mmol/L (3.5-5.1); SODIUM 132 mmol/L (135-144)
[2017-10-11 09:08] LABS: ANISOCYTOSIS 1+ (0-0); BAND NEUTROPHILS #M 2.9 10^3/ul (0.0-0.6); BAND NEUTROPHILS % (M) 14 % (0-4); BURR CELLS 3+ (0-0); EOSINOPHILS % (M) 1 % (0-7); GIANT THROMBO% (M) 1 % (0-0); METAMYELOCYTES #M 0.4 10^3/ul (0.0-0.0); METAMYELOCYTES %M 2 % (0-0); MONOCYTE #M 2.2 10^3/ul (0.3-0.9); MONOCYTES % (M) 11 % (0-11); MYELOCYTES #M 0.4 10^3/ul (0.0-0.0); MYELOCYTES % (M) 2 % (0-0); PLATELET ESTIMATE NORMAL; POIKILOCYTOSIS 2+ (0-0); PROMYELOCYTES #M 0.4 10^3/ul (0-0); PROMYELOCYTES % (M) 2 % (0-0); SEG NEUT #M 14.7 10^3/ul (1.6-7.5); SEGMENTED NEUTROPHILS (M) % 68 % (39-77); SMUDGE%M 4 % (0-0)
[2017-10-11] MEDS: CEFEPIME 2GM/50 ML (PMX) 50 ML IVPB (09:54)
[2017-10-11] MEDS: ERTAPENEM SODIUM 1 GM in SOD CHLORIDE 0.9% 100 ML IVPB (15:55)
[2017-10-11] MEDS: POTASSIUM CHLORIDE (SR) 20 MEQ TAB PO (18:38)
[2017-10-11] MEDS: ZOLPIDEM 5 MG TAB PO (21:14)
[2017-10-12 06:51] LABS: ABNORMAL IP MESSAGE 1; HEMATOCRIT 25.7 % (42.0-52.0); MEAN CORPUSCULAR HEMOGLOBIN 30.4 pg (29.0-33.0); MEAN CORPUSCULAR VOLUME 86.8 fl (82.0-101.0); NUCLEATED RED BLOOD CELLS% 0.1 /100WBC (0.0-0.0); PLATELET COUNT 325 10^3/UL (140-415); POSITIVE DIFF @See below; RED BLOOD COUNT 2.96 10^6/ul (4.70-6.10); RED CELL DISTRIBUTION WIDTH 14.2 % (11.5-14.5)
[2017-10-12 06:51] LABS: WHITE BLOOD COUNT 15.6 10^3/ul (4.8-10.8)
[2017-10-12 06:55] LABS: ADD MAN DIFF? YES
[2017-10-12 07:17] LABS: ANION GAP 10 (8-16); BLOOD UREA NITROGEN 5 mg/dl (7-20); CALCIUM 7.6 mg/dl (8.4-10.2); CARBON DIOXIDE 24 mmol/L (21-31); CHLORIDE 98 mmol/L (97-110); CREATININE 0.45 mg/dl (0.61-1.24); GLUCOSE 78 mg/dl (70-220); POTASSIUM 3.1 mmol/L (3.5-5.1); SODIUM 129 mmol/L (135-144)
[2017-10-12 09:01] LABS: ANISOCYTOSIS 1+ (0-0); BAND NEUTROPHILS #M 1.2 10^3/ul (0.0-0.6); BAND NEUTROPHILS % (M) 8 % (0-4); ERYTHROBLAST% (NRBC) (M) 2 % (0-0); GIANT THROMBO% (M) 2 % (0-0); LYMPHOCYTES #M 0.1 10^3/ul (0.8-2.9); LYMPHOCYTES % (M) 1 % (15-51); METAMYELOCYTES #M 0.1 10^3/ul (0.0-0.0); METAMYELOCYTES %M 1 % (0-0); MONOCYTES % (M) 7 % (0-11); MYELOCYTES #M 0.9 10^3/ul (0.0-0.0); MYELOCYTES % (M) 6 % (0-0); PLATELET ESTIMATE NORMAL; POIKILOCYTOSIS 3+ (0-0); POLYCHROMASIA 2+ (0-0); PROMYELOCYTES #M 0.3 10^3/ul (0-0); PROMYELOCYTES % (M) 2 % (0-0); SEG NEUT #M 11.9 10^3/ul (1.6-7.5); SEGMENTED NEUTROPHILS (M) % 75 % (39-77); SMUDGE%M 8 % (0-0)
[2017-10-12] MEDS: POTASSIUM CHLORIDE (SR) 20 MEQ TAB PO (09:40)
[2017-10-12] MEDS: LIDOCAINE 1% (MPF) 5 ML VIAL SC (12:20)
[2017-10-12] MEDS ORDERED: HYDROCODONE/APAP (5/325) TAB PO (14:00)
[2017-10-12] MEDS: ERTAPENEM SODIUM 1 GM in SOD CHLORIDE 0.9% 100 ML IVPB (16:41)
[2017-10-12] MEDS: traZODone 50 MG TAB PO (21:11)
[2017-10-13 06:10] LABS: WHITE BLOOD COUNT 9.4 10^3/ul (4.8-10.8)
[2017-10-13 06:10] LABS: HEMATOCRIT 21.8 % (42.0-52.0); HEMOGLOBIN 7.8 g/dl (14.0-18.0); MEAN CORPUSCULAR VOLUME 88.6 fl (82.0-101.0); RED BLOOD COUNT 2.46 10^6/ul (4.70-6.10)
[2017-10-13 06:11] LABS: ABNORMAL IP MESSAGE 1; MEAN CORPUSCULAR HEMOGLOBIN 31.7 pg (29.0-33.0); MEAN CORPUSCULAR HGB CONC 35.8 g/dl (32.0-37.0); MEAN PLATELET VOLUME 9.8 fl (7.4-10.4); PLATELET COUNT 311 10^3/UL (140-415); POSITIVE DIFF @See below; RED CELL DISTRIBUTION WIDTH 14.2 % (11.5-14.5)
[2017-10-13 06:35] LABS: ANION GAP 8 (8-16); BLOOD UREA NITROGEN 3 mg/dl (7-20); CALCIUM 7.7 mg/dl (8.4-10.2); CARBON DIOXIDE 27 mmol/L (21-31); CHLORIDE 98 mmol/L (97-110); GLUCOSE 73 mg/dl (70-220); POTASSIUM 3.2 mmol/L (3.5-5.1); SODIUM 130 mmol/L (135-144)
[2017-10-13 07:15] LABS: ADD MAN DIFF? YES
[2017-10-13 09:23] LABS: ANISOCYTOSIS 1+ (0-0); EOSINOPHILS % (M) 1 % (0-7); METAMYELOCYTES #M 0.2 10^3/ul (0.0-0.0); METAMYELOCYTES %M 3 % (0-0); MONOCYTES % (M) 1 % (0-11); PLATELET ESTIMATE NORMAL; SEGMENTED NEUTROPHILS (M) % 95 % (39-77); SMUDGE%M 22 % (0-0)
[2017-10-13] MEDS: ERTAPENEM SODIUM 1 GM in SOD CHLORIDE 0.9% 100 ML IVPB (15:11)
[2017-10-13] MEDS: traZODone 50 MG TAB PO (21:02)
[2017-10-13] MEDS: ZOLPIDEM 5 MG TAB PO (23:03)
[2017-10-14] MEDS: ZOLPIDEM 5 MG TAB PO (00:33)
[2017-10-14 05:08] LABS: ABNORMAL IP MESSAGE 1; ADD MAN DIFF? NO; HEMATOCRIT 24.9 % (42.0-52.0); MEAN CORPUSCULAR HGB CONC 36.1 g/dl (32.0-37.0); MEAN CORPUSCULAR VOLUME 88.6 fl (82.0-101.0); MEAN PLATELET VOLUME 9.8 fl (7.4-10.4); PLATELET COUNT 379 10^3/UL (140-415); POSITIVE DIFF @See below; RED BLOOD COUNT 2.81 10^6/ul (4.70-6.10); RED CELL DISTRIBUTION WIDTH 14.1 % (11.5-14.5)
[2017-10-14 05:49] LABS: ANION GAP 8 (8-16); BLOOD UREA NITROGEN 5 mg/dl (7-20); CALCIUM 7.8 mg/dl (8.4-10.2); CARBON DIOXIDE 27 mmol/L (21-31); CHLORIDE 98 mmol/L (97-110); CREATININE 0.43 mg/dl (0.61-1.24); GLUCOSE 77 mg/dl (70-220); POTASSIUM 3.5 mmol/L (3.5-5.1); SODIUM 129 mmol/L (135-144)
[2017-10-14 08:02] LABS: ANISOCYTOSIS 1+ (0-0); BAND NEUTROPHILS #M 0.3 10^3/ul (0.0-0.6); BAND NEUTROPHILS % (M) 5 % (0-4); BURR CELLS 1+ (0-0); EOSINOPHILS % (M) 2 % (0-7); ERYTHROBLAST% (NRBC) (M) 1 % (0-0); LYMPHOCYTES #M 0.2 10^3/ul (0.8-2.9); LYMPHOCYTES % (M) 4 % (15-51); METAMYELOCYTES #M 0.2 10^3/ul (0.0-0.0); METAMYELOCYTES %M 3 % (0-0); MONOCYTE #M 0.9 10^3/ul (0.3-0.9); MONOCYTES % (M) 13 % (0-11); MYELOCYTES #M 0.2 10^3/ul (0.0-0.0); MYELOCYTES % (M) 3 % (0-0); OVALOCYTES 1+ (0-0); PLATELET ESTIMATE NORMAL; POIKILOCYTOSIS 1+ (0-0); POLYCHROMASIA 1+ (0-0); PROMYELOCYTES % (M) 1 % (0-0); REACTIVE LYMPHOCYTES% (M) 1 % (0-0); SEG NEUT #M 4.8 10^3/ul (1.6-7.5); SEGMENTED NEUTROPHILS (M) % 68 % (39-77); SMUDGE%M 43 % (0-0); TARGET CELLS 1+ (0-0)
[2017-10-14] MEDS: ERTAPENEM SODIUM 1 GM in SOD CHLORIDE 0.9% 100 ML IVPB (14:18)
== END 2017-10-14 17:45 | disposition home health service (06) | DRG 871 ==
LOC: E/R 11:37 → TEL 13:50 → 2NE 10-12 22:47
PROC: 0DBE8ZX Excision of Large Intestine, Via Natural or Artificial Opening Endoscopic, Diagnostic (ICD-10-PCS; principal; 2017-10-10 12:30)
PROC: 30233N1 Transfusion of Nonautologous Red Blood Cells into Peripheral Vein, Percutaneous Approach (ICD-10-PCS; 2017-10-10 12:30)
PROC: 02HV33Z Insertion of Infusion Device into Superior Vena Cava, Percutaneous Approach (ICD-10-PCS; 2017-10-10 12:30)
DX: A41.59 Other Gram-negative sepsis (principal); E43 Unspecified severe protein-calorie malnutrition; C16.9 Malignant neoplasm of stomach, unspecified; C78.6 Secondary malignant neoplasm of retroperitoneum and peritoneum; E87.1 Hypo-osmolality and hyponatremia; E87.2 Acidosis; Z68.1 Body mass index [BMI] 19.9 or less, adult; D62 Acute posthemorrhagic anemia; K62.5 Hemorrhage of anus and rectum; R04.2 Hemoptysis; C79.89 Secondary malignant neoplasm of other specified sites; C79.51 Secondary malignant neoplasm of bone; C78.7 Secondary malignant neoplasm of liver and intrahepatic bile duct; C78.89 Secondary malignant neoplasm of other digestive organs; I82.611 Acute embolism and thrombosis of superficial veins of right upper extremity; R65.20 Severe sepsis without septic shock; D12.6 Benign neoplasm of colon, unspecified; E86.0 Dehydration; D70.1 Agranulocytosis secondary to cancer chemotherapy; T45.1X5A Adverse effect of antineoplastic and immunosuppressive drugs, initial encounter; Z87.891 Personal history of nicotine dependence; R11.0 Nausea; D70.9 Neutropenia, unspecified; R50.81 Fever presenting with conditions classified elsewhere; K63.5 Polyp of colon; K64.8 Other hemorrhoids; K08.89 Other specified disorders of teeth and supporting structures
CPT/HCPCS: 36415; 36430; 36569; 70486; 70552; 71045; 71250; 74176; 74177; 76937; 78278; 80048; 80053; 80061; 81001; 82270; 83036; 83605; 83735; 84100; 84439; 84443; 84484; 85014; 85018; 85025; 85610; 85730; 86644; 86850; 86870; 86900; 86901; 86920; 86945; 87040; 87086; 88305; 92610; 93005; 93306; 93970; 96374; 97110; 97116; 97162; 97165; 97530; 97535; 99291-25

== ENCOUNTER 2017-12-20 11:19 | Inpatient (IN) | payer MEDICARE, OTHER ==
[2017-12-20 12:15] LABS: WHITE BLOOD COUNT 27.4 10^3/ul (4.8-10.8)
[2017-12-20 12:15] LABS: ABNORMAL IP MESSAGE 1; HEMATOCRIT 27.2 % (42.0-52.0); MEAN CORPUSCULAR HEMOGLOBIN 32.9 pg (29.0-33.0); MEAN CORPUSCULAR HGB CONC 36.8 g/dl (32.0-37.0); MEAN CORPUSCULAR VOLUME 89.5 fl (82.0-101.0); MEAN PLATELET VOLUME 10.1 fl (7.4-10.4); PLATELET COUNT 277 10^3/UL (140-415); POSITIVE DIFF @See below; RED BLOOD COUNT 3.04 10^6/ul (4.70-6.10); RED CELL DISTRIBUTION WIDTH 20.3 % (11.5-14.5)
[2017-12-20 12:20] LABS: ADD MAN DIFF? YES
[2017-12-20] MEDS: SODIUM CHLORIDE 0.9% 1L BAG IV* (12:22)
[2017-12-20 12:39] LABS: ALANINE AMINOTRANSFERASE 55 IU/L (13-69); ALBUMIN 2.3 g/dl (3.3-4.9); ALBUMIN/GLOBULIN RATIO 0.67; ALKALINE PHOSPHATASE 1108 IU/L (42-121); ANION GAP 11 (5-13); ASPARTATE AMINO TRANSFERASE 78 IU/L (15-46); BILIRUBIN,INDIRECT 1.2 mg/dl (0-1.1); BILIRUBIN,TOTAL 6.9 mg/dl (0.2-1.3); BLOOD UREA NITROGEN 32 mg/dl (7-20); CALCIUM 7.9 mg/dl (8.4-10.2); CARBON DIOXIDE 20 mmol/L (21-31); CHLORIDE 95 mmol/L (97-110); CREATININE 0.97 mg/dl (0.61-1.24); Estimated GFR > 60 mL/min (>60); GLUCOSE 151 mg/dl (70-220); INR 1.35; PROTIME 16.9 Sec (11.9-14.9); PT RATIO 1.3; SODIUM 126 mmol/L (135-144); TOTAL PROTEIN 5.7 g/dl (6.1-8.1)
[2017-12-20 12:40] LABS: PARTIAL THROMBOPLASTIN TIME 35.7 Sec (23.0-35.0)
[2017-12-20 12:50] LABS: ANISOCYTOSIS 3+ (0-0); BAND NEUTROPHILS #M 0.2 10^3/ul (0.0-0.6); BAND NEUTROPHILS % (M) 1 % (0-4); HYPOCHROMASIA 1+ (0-0); LYMPHOCYTES #M 0.2 10^3/ul (0.8-2.9); LYMPHOCYTES % (M) 1 % (15-51); MONOCYTES % (M) 4 % (0-11); PLATELET ESTIMATE NORMAL; POIKILOCYTOSIS 1+ (0-0); POLYCHROMASIA 1+ (0-0); SEG NEUT #M 25.8 10^3/ul (1.6-7.5); SEGMENTED NEUTROPHILS (M) % 94 % (39-77); TARGET CELLS 3+ (0-0); TROPONIN-I < 0.012 ng/ml (0.000-0.120)
[2017-12-20 12:51] LABS: AMYLASE < 30 U/L (11-123); LIPASE < 10 U/L (23-300)
[2017-12-20] MEDS: CEFEPIME 2GM/50 ML (PMX) 50 ML IVPB (14:02)
[2017-12-20] MEDS ORDERED: ONDANSETRON 4 MG INJ IV (14:30)
[2017-12-20 14:41] LABS: ADD UMIC YES; UR ASCORBIC ACID NEGATIVE (NEGATIVE); UR BACTERIA FEW /HPF (NONE SEEN); UR BILIRUBIN (Dip) 2+ mg/dL (NEGATIVE); UR BLOOD (Dip) 1+ mg/dL (NEGATIVE); UR CELLULAR CAST FEW /HPF (NONE SEEN); UR CLARITY CLOUDY (CLEAR); UR COLOR AMBER (YELLOW); UR GLUCOSE (Dip) NEGATIVE (NEGATIVE); UR HYALINE CAST FEW /HPF (NONE SEEN); UR KETONES (Dip) NEGATIVE (NEGATIVE); UR LEUKOCYTE ESTERASE (Dip) NEGATIVE Leu/ul (NEGATIVE); UR MUCUS MODERATE /HPF (NONE SEEN); UR NITRITE (Dip) NEGATIVE (NEGATIVE); UR NONSQUAMOUS EPITHELIAL CELL 1 /HPF (NONE SEEN); UR RBC 0 /HPF (0-5); UR SPECIFIC GRAVITY (Dip) 1.025 (1.003-1.030); UR TOTAL PROTEIN (Dip) 1+ mg/dl (NEGATIVE); UR UROBILINOGEN (Dip) 2+ mg/dL (NEGATIVE); UR WBC 20 /HPF (0-5)
[2017-12-20] MEDS: VANCOMYCIN 1 GM (PMX) 250 ML IVPB (15:05)
[2017-12-20] MEDS ORDERED: NACL 0.9% 3 ML SYG IV (16:30)
[2017-12-20 17:51] LABS: LACTIC ACID 2.5 mmol/L (0.5-2.0)
[2017-12-20] MEDS: DEXTROSE 5%-0.45% NACL 1,000 ML IV (18:36)
[2017-12-20] MEDS: HYDROmorphONE 0.5 MG/0.5 ML SYG IV (22:47)
[2017-12-21] MEDS: HYDROmorphONE 0.5 MG/0.5 ML SYG IV ×3 (02:50→11:29)
[2017-12-21] MEDS: DEXTROSE 5%-0.45% NACL 1,000 ML IV (02:55)
[2017-12-21] MEDS: ENOXAPARIN 30 MG/0.3 ML SYG SC (08:14)
[2017-12-21 08:19] LABS: ADD MAN DIFF? NO
[2017-12-21 08:24] LABS: WHITE BLOOD COUNT 23.9 10^3/ul (4.8-10.8)
[2017-12-21 08:24] LABS: ABNORMAL IP MESSAGE 1; BASOPHILS % 0.1 % (0.0-2.0); HEMATOCRIT 27.7 % (42.0-52.0); HEMOGLOBIN 10.4 g/dl (14.0-18.0); LYMPHOCYTES # 0.3 10^3/ul (0.8-2.9); LYMPHOCYTES % 1.2 % (15.0-51.0); MEAN CORPUSCULAR HEMOGLOBIN 33.4 pg (29.0-33.0); MEAN CORPUSCULAR HGB CONC 37.5 g/dl (32.0-37.0); MEAN CORPUSCULAR VOLUME 89.1 fl (82.0-101.0); MEAN PLATELET VOLUME 11.2 fl (7.4-10.4); MONOCYTE # 1.1 10^3/ul (0.3-0.9); MONOCYTES % 4.7 % (0.0-11.0); NEUTROPHIL # 22.1 10^3/ul (1.6-7.5); NEUTROPHILS % 92.5 % (39.0-77.0); PLATELET COUNT 242 10^3/UL (140-415); POSITIVE DIFF @See below; RED BLOOD COUNT 3.11 10^6/ul (4.70-6.10); RED CELL DISTRIBUTION WIDTH 20.2 % (11.5-14.5)
[2017-12-21 08:47] LABS: ALANINE AMINOTRANSFERASE 54 IU/L (13-69); ALBUMIN 2.4 g/dl (3.3-4.9); ALBUMIN/GLOBULIN RATIO 0.72; ALKALINE PHOSPHATASE 1088 IU/L (42-121); ANION GAP 6 (5-13); ASPARTATE AMINO TRANSFERASE 93 IU/L (15-46); BILIRUBIN,INDIRECT 1.4 mg/dl (0-1.1); BILIRUBIN,TOTAL 7.2 mg/dl (0.2-1.3); BLOOD UREA NITROGEN 26 mg/dl (7-20); CALCIUM 8.2 mg/dl (8.4-10.2); CARBON DIOXIDE 21 mmol/L (21-31); CHLORIDE 102 mmol/L (97-110); CREATININE 0.66 mg/dl (0.61-1.24); Estimated GFR > 60 mL/min (>60); GLUCOSE 87 mg/dl (70-220); POTASSIUM 4.6 mmol/L (3.5-5.1); SODIUM 129 mmol/L (135-144); TOTAL PROTEIN 5.7 g/dl (6.1-8.1)
[2017-12-21] MEDS: SOD CHLORIDE 0.9% 1,000 ML IV (09:46)
[2017-12-21] MEDS: PROPOFOL 20 ML (11:33)
[2017-12-21] MEDS: LIDOCAINE 4% SOLUTION 50 ML BTL (11:33)
[2017-12-21] MEDS: FLUCONAZOLE 100 MG/50 ML (PMX) 50 ML IVPB (12:38)
[2017-12-21] MEDS: HYDROCODONE/APAP (5/325) TAB PO (15:29)
== END 2017-12-21 18:21 | disposition home or self-care (01) | DRG 369 ==
LOC: E/R 11:19 → TEL 14:32
PROC: 0DB58ZX Excision of Esophagus, Via Natural or Artificial Opening Endoscopic, Diagnostic (ICD-10-PCS; principal; 2017-12-21 10:24)
DX: B37.81 Candidal esophagitis (principal); N17.9 Acute kidney failure, unspecified; E87.1 Hypo-osmolality and hyponatremia; C78.6 Secondary malignant neoplasm of retroperitoneum and peritoneum; C78.7 Secondary malignant neoplasm of liver and intrahepatic bile duct; R13.10 Dysphagia, unspecified; E86.0 Dehydration; R62.7 Adult failure to thrive; K22.2 Esophageal obstruction; E80.6 Other disorders of bilirubin metabolism; Z85.028 Personal history of other malignant neoplasm of stomach; Z90.3 Acquired absence of stomach [part of]
CPT/HCPCS: 36415; 71045; 74176; 80053; 81001; 82150; 83605; 83690; 84484; 85025; 85610; 85730; 87040; 87086; 88305; 88313; 90686; 93005; 96374; 99285-25; G0378